=== PATIENT | male | born 1995 | race Two or more races ===

== ENCOUNTER 2022-09-06 22:38 | Inpatient (IN) | payer BC, OTHER ==
[2022-09-07 01:00] VITALS: BMI 26.3
[2022-09-07] MEDS ORDERED: NICOTINE 7 MG/24 HOURS TOPICAL PATCH TD PRN (09:07)
[2022-09-07] MEDS ORDERED: BENZOCAINE/MENTHOL (CHLORASEPTIC ) LOZENGE MM PRN (09:07)
[2022-09-07] MEDS ORDERED: BENZONATATE 200 MG CAPSULE PO PRN (09:07)
[2022-09-07] MEDS ORDERED: MAGNESIUM HYDROX 2400MG/30ML ORAL SUSPENSION 30 ML CUP PO PRN (09:07)
[2022-09-07] MEDS ORDERED: ACETAMINOPHEN 325 MG TABLET (FP) PO PRN (09:07)
[2022-09-07] MEDS ORDERED: ONDANSETRON *ODT* 4 MG TABLET SL PRN (09:07)
[2022-09-07] MEDS ORDERED: LOPERAMIDE HCL 2 MG CAPSULE PO PRN (09:07)
[2022-09-07] MEDS ORDERED: METHOCARBAMOL 500 MG TABLET PO PRN (09:07)
[2022-09-07] MEDS ORDERED: BISMUTH SUBSALICYLATE 262 MG/15 ML BTL PO PRN (09:07)
[2022-09-07] MEDS ORDERED: IBUPROFEN 600 MG TABLET (FP) PO PRN (09:07)
[2022-09-07] MEDS ORDERED: NICOTINE 10 MG CARTRIDGE (INHALER) IH PRN (09:07)
[2022-09-07] MEDS ORDERED: POLYETHYLENE GLYCOL (HEALTHYLAX) 3350 17 GM PACKET PO PRN (09:07)
[2022-09-07] MEDS ORDERED: hydrOXYzine PAMOATE 25 MG CAPSULE (FP) PO PRN (09:07)
[2022-09-07] MEDS ORDERED: guaiFENesin 600 MG TABLET.ER (FP) PO PRN (09:07)
[2022-09-07] MEDS ORDERED: IBUPROFEN 400 MG TABLET (FP) PO PRN (09:07)
[2022-09-07] MEDS ORDERED: MAG HYDROX/AL HYDROX/SIMETH 30 ML UNIT-DOSE CUP PO PRN (09:07)
[2022-09-07] MEDS ORDERED: NICOTINE POLACRILEX 2 MG GUM BUC PRN (09:07)
[2022-09-07] MEDS ORDERED: DICYCLOMINE HCL 10 MG CAPSULE PO PRN (09:07)
[2022-09-07] MEDS: PRENATAL VITAMINS W/ FOLIC ACID TABLET (FP) PO SCH (10:00)
[2022-09-07 13:29] LABS: HEMOGLOBIN 12.7 GM/dL (11.7-16.9); MCHC 33.4 g/dl (32.0-35.9); MEAN CELL VOLUME 86.7 fl (80-96); MEAN PLT VOLUME 9.7 fl (7.5-11.1); PLATELET COUNT 214 10^3/uL (134-434); RBC 4.38 M/mm3 (4.00-5.60); RDW 14.2 % (11.9-15.9); WHITE BLOOD COUNT 3.6 K/mm3 (4.0-10.0)
[2022-09-07 13:35] LABS: ALBUMIN 3.4 g/dl (3.4-5.0); BLOOD UREA NITROGEN 16.1 mg/dL (7-18); CALCIUM 8.7 mg/dL (8.5-10.1)
[2022-09-07 13:38] LABS: CREATININE 0.8 mg/dL (0.55-1.3)
[2022-09-07 13:40] LABS: BILIRUBIN,TOTAL 1.5 mg/dL (0.2-1); TOT PROT 6.8 g/dl (6.4-8.2)
[2022-09-07] MEDS: MELATONIN 5 MG TABLETS PO SCH (22:11)
[2022-09-07] MEDS: THIAMINE HCL 100 MG TABLET (FP) PO SCH (22:12)
[2022-09-08] MEDS: PRENATAL VITAMINS W/ FOLIC ACID TABLET (FP) PO SCH (10:26)
[2022-09-08] MEDS: NEOMYCIN/POLYMYXIN/BACITRACIN (TRIPLE ANTIBIOTIC) 28 GM OINTMENT TP SCH (22:16)
[2022-09-08] MEDS: MELATONIN 5 MG TABLETS PO SCH (22:16)
[2022-09-08] MEDS: THIAMINE HCL 100 MG TABLET (FP) PO SCH (22:16)
[2022-09-09] MEDS: NEOMYCIN/POLYMYXIN/BACITRACIN (TRIPLE ANTIBIOTIC) 28 GM OINTMENT TP SCH ×2 (10:43→22:07)
[2022-09-09] MEDS: PRENATAL VITAMINS W/ FOLIC ACID TABLET (FP) PO SCH (10:44)
[2022-09-09] MEDS ORDERED: diazePAM 5 MG TABLET PO PRN (10:51)
[2022-09-09] MEDS: diazePAM 5 MG TABLET PO SCH ×3 (11:55→22:07)
[2022-09-09] MEDS: MELATONIN 5 MG TABLETS PO SCH (22:08)
[2022-09-09] MEDS: THIAMINE HCL 100 MG TABLET (FP) PO SCH (22:08)
[2022-09-10] MEDS: diazePAM 5 MG TABLET PO SCH ×4 (05:44→22:01)
[2022-09-10] MEDS: PRENATAL VITAMINS W/ FOLIC ACID TABLET (FP) PO SCH (10:22)
[2022-09-10] MEDS: NEOMYCIN/POLYMYXIN/BACITRACIN (TRIPLE ANTIBIOTIC) 28 GM OINTMENT TP SCH ×2 (10:22→22:02)
[2022-09-10] MEDS ORDERED: PENICILLIN G BENZATHINE 2,400,000 UNIT/4 ML PFS IM ONE (11:15)
[2022-09-10] MEDS: MELATONIN 5 MG TABLETS PO SCH (22:02)
[2022-09-10] MEDS: THIAMINE HCL 100 MG TABLET (FP) PO SCH (22:02)
[2022-09-11] MEDS ORDERED: diazePAM 5 MG TABLET PO SCH (06:00)
[2022-09-11 06:29] VITALS: RESP 16
[2022-09-11 09:21] VITALS: BP 119/67; PULSE 87; TEMP 97.1
[2022-09-11] MEDS: NEOMYCIN/POLYMYXIN/BACITRACIN (TRIPLE ANTIBIOTIC) 28 GM OINTMENT TP SCH (10:10)
[2022-09-11] MEDS: PRENATAL VITAMINS W/ FOLIC ACID TABLET (FP) PO SCH (10:10)
[2022-09-12] MEDS ORDERED: diazePAM 5 MG TABLET PO SCH (06:00)
[2022-09-13] MEDS ORDERED: diazePAM 5 MG TABLET PO ONE (06:00)
== END 2022-09-11 09:45 | disposition left against medical advice (07) | DRG 770 ==
LOC: YASAS 22:38 → Y3N 09-07 11:38
PROVIDERS: ADMIT Allergy & Immunology; ATTEND Surgery
PROC: HZ2ZZZZ Detoxification Services for Substance Abuse Treatment (ICD-10-PCS; principal; 2022-09-07)
DX: F13.230 Sedative, hypnotic or anxiolytic dependence with withdrawal, uncomplicated (principal); F17.210 Nicotine dependence, cigarettes, uncomplicated; F41.9 Anxiety disorder, unspecified; Z21 Asymptomatic human immunodeficiency virus [HIV] infection status; R76.8 Other specified abnormal immunological findings in serum; Z86.19 Personal history of other infectious and parasitic diseases
CPT/HCPCS: 36415; 80053; 85027; 86593; 86780; 87811; 93005; 93010; C9803-CS; U0003; U0005

== ENCOUNTER 2022-12-15 19:13 | Inpatient (IN) | payer OTHER ==
[2022-12-15 22:33] VITALS: BMI 21.6
[2022-12-15] MEDS ORDERED: NALOXONE HCL 0.4 MG/ML VIAL IM PRN (23:25)
[2022-12-15] MEDS ORDERED: ACETAMINOPHEN 325 MG TABLET (FP) PO PRN (23:25)
[2022-12-15] MEDS ORDERED: MAG HYDROX/AL HYDROX/SIMETH 30 ML UNIT-DOSE CUP PO PRN (23:25)
[2022-12-15] MEDS ORDERED: COLLOIDAL OATMEAL 1 BAR EACH TP PRN (23:25)
[2022-12-15] MEDS ORDERED: NALOXONE HCL (KLOXXADO) 8 MG SPRAY NS PRN (23:25)
[2022-12-15] MEDS ORDERED: guaiFENesin 600 MG TABLET.ER (FP) PO PRN (23:25)
[2022-12-15] MEDS ORDERED: NICOTINE POLACRILEX 2 MG GUM BUC PRN (23:25)
[2022-12-15] MEDS ORDERED: IBUPROFEN 400 MG TABLET (FP) PO PRN (23:25)
[2022-12-15] MEDS ORDERED: BENZONATATE 200 MG CAPSULE PO PRN (23:25)
[2022-12-15] MEDS ORDERED: MAGNESIUM HYDROX 2400MG/30ML ORAL SUSPENSION 30 ML CUP PO PRN (23:25)
[2022-12-15] MEDS ORDERED: AMMONIUM LACTATE 12% LOTION 225 GM BOTTLE TP PRN (23:25)
[2022-12-15] MEDS ORDERED: BENZOCAINE/MENTHOL (CHLORASEPTIC ) LOZENGE MM PRN (23:25)
[2022-12-15] MEDS ORDERED: LOPERAMIDE HCL 2 MG CAPSULE PO PRN (23:25)
[2022-12-15] MEDS ORDERED: POLYETHYLENE GLYCOL (HEALTHYLAX) 3350 17 GM PACKET PO PRN (23:25)
[2022-12-15] MEDS ORDERED: IBUPROFEN 600 MG TABLET (FP) PO PRN (23:25)
[2022-12-16] MEDS: MELATONIN 5 MG TABLETS PO SCH ×2 (06:26→21:26)
[2022-12-16] MEDS ORDERED: NICOTINE 14 MG/24 HOURS TOPICAL PATCH TD SCH (10:00)
[2022-12-16] MEDS ORDERED: PRENATAL VITAMINS W/ FOLIC ACID TABLET (FP) PO SCH (10:00)
[2022-12-16 11:38] LABS: HEMATOCRIT 36.8 % (35.4-49); HEMOGLOBIN 12.3 GM/dL (11.7-16.9); MCH 28.9 pg (25.7-33.7); MCHC 33.4 g/dl (32.0-35.9); MEAN CELL VOLUME 86.4 fl (80-96); MEAN PLT VOLUME 8.9 fl (7.5-11.1); PLATELET COUNT 242 10^3/uL (134-434); RBC 4.26 M/mm3 (4.00-5.60); RDW 14.3 % (11.9-15.9); WHITE BLOOD COUNT 3.4 K/mm3 (4.0-10.0)
[2022-12-16 12:08] LABS: POTASSIUM 3.9 mmol/L (3.5-5.1)
[2022-12-16 12:15] LABS: ALBUMIN 3.3 g/dl (3.4-5.0); BLOOD UREA NITROGEN 18.5 mg/dL (7-18); CALCIUM 8.4 mg/dL (8.5-10.1)
[2022-12-16 12:18] LABS: CREATININE 0.7 mg/dL (0.55-1.3)
[2022-12-16 12:20] LABS: BILIRUBIN,TOTAL 0.6 mg/dL (0.2-1); TOT PROT 6.5 g/dl (6.4-8.2)
[2022-12-16 12:54] LABS: SYPHILIS W/ RPR CONF REACTIVE (NONREACTIVE)
[2022-12-16] MEDS ORDERED: NICOTINE 14 MG/24 HOURS TOPICAL PATCH TD PRN (14:08)
[2022-12-16] MEDS ORDERED: PRENATAL VITAMINS W/ FOLIC ACID TABLET (FP) PO PRN (15:18)
[2022-12-16] MEDS: THIAMINE HCL 100 MG TABLET (FP) PO SCH (21:26)
[2022-12-17] MEDS: THIAMINE HCL 100 MG TABLET (FP) PO SCH (22:02)
[2022-12-17] MEDS: MELATONIN 5 MG TABLETS PO SCH (22:02)
[2022-12-18 10:51] LABS: URINE APPEARANCE CLEAR; URINE BILIRUBIN NEGATIVE (NEGATIVE); URINE COLOR YELLOW; URINE GLUCOSE (UA) NEGATIVE (NEGATIVE); URINE KETONE NEGATIVE (NEGATIVE); URINE LEUK ESTERASE NEGATIVE (NEGATIVE); URINE NITRITE NEGATIVE (NEGATIVE); URINE PROTEIN NEGATIVE (NEGATIVE); URINE UROBILINOGEN 0.2 mg/dL (0.2-1.0)
[2022-12-18] MEDS: MELATONIN 5 MG TABLETS PO SCH (23:02)
[2022-12-18] MEDS: THIAMINE HCL 100 MG TABLET (FP) PO SCH (23:02)
[2022-12-19] MEDS: MELATONIN 5 MG TABLETS PO SCH (21:42)
[2022-12-19] MEDS: THIAMINE HCL 100 MG TABLET (FP) PO SCH (21:42)
[2022-12-20] MEDS: MELATONIN 5 MG TABLETS PO SCH (21:30)
[2022-12-20] MEDS: THIAMINE HCL 100 MG TABLET (FP) PO SCH (21:30)
[2022-12-21] MEDS: THIAMINE HCL 100 MG TABLET (FP) PO SCH (21:34)
[2022-12-21] MEDS: MELATONIN 5 MG TABLETS PO SCH (21:34)
[2022-12-22] MEDS: MELATONIN 5 MG TABLETS PO SCH (21:17)
[2022-12-22] MEDS: THIAMINE HCL 100 MG TABLET (FP) PO SCH (21:17)
[2022-12-22] MEDS: hydrOXYzine PAMOATE 25 MG CAPSULE (FP) PO PRN (21:18)
[2022-12-23] MEDS: THIAMINE HCL 100 MG TABLET (FP) PO SCH (21:06)
[2022-12-23] MEDS: MELATONIN 5 MG TABLETS PO SCH (21:06)
[2022-12-23] MEDS: hydrOXYzine PAMOATE 25 MG CAPSULE (FP) PO PRN (21:07)
[2022-12-24] MEDS: THIAMINE HCL 100 MG TABLET (FP) PO SCH (21:15)
[2022-12-24] MEDS: MELATONIN 5 MG TABLETS PO SCH (21:15)
[2022-12-24] MEDS: hydrOXYzine PAMOATE 25 MG CAPSULE (FP) PO PRN (21:16)
[2022-12-25] MEDS: MELATONIN 5 MG TABLETS PO SCH (21:14)
[2022-12-25] MEDS: THIAMINE HCL 100 MG TABLET (FP) PO SCH (21:14)
[2022-12-25] MEDS: hydrOXYzine PAMOATE 25 MG CAPSULE (FP) PO PRN (21:14)
[2022-12-26] MEDS: hydrOXYzine PAMOATE 25 MG CAPSULE (FP) PO PRN (21:29)
[2022-12-26] MEDS: THIAMINE HCL 100 MG TABLET (FP) PO SCH (21:29)
[2022-12-26] MEDS: MELATONIN 5 MG TABLETS PO SCH (21:29)
[2022-12-27] MEDS: MELATONIN 5 MG TABLETS PO SCH (21:12)
[2022-12-27] MEDS: THIAMINE HCL 100 MG TABLET (FP) PO SCH (21:12)
[2022-12-27] MEDS: hydrOXYzine PAMOATE 25 MG CAPSULE (FP) PO PRN (21:13)
[2022-12-28] MEDS: hydrOXYzine PAMOATE 25 MG CAPSULE (FP) PO PRN (22:52)
[2022-12-28] MEDS: THIAMINE HCL 100 MG TABLET (FP) PO SCH (22:53)
[2022-12-28] MEDS: MELATONIN 5 MG TABLETS PO SCH (22:53)
[2022-12-29 06:52] VITALS: BP 125/81; PULSE 82; RESP 20; TEMP 97.7
== END 2022-12-29 09:08 | disposition home or self-care (01) | DRG 772 ==
LOC: YASAS 19:13 → Y3E 23:39
PROVIDERS: ADMIT Allergy & Immunology; ATTEND Psychiatry & Neurology Pain Medicine
PROC: HZ42ZZZ Group Counseling for Substance Abuse Treatment, Cognitive-Behavioral (ICD-10-PCS; principal; 2022-12-15)
DX: F15.20 Other stimulant dependence, uncomplicated (principal); F12.20 Cannabis dependence, uncomplicated; F17.210 Nicotine dependence, cigarettes, uncomplicated; F19.94 Other psychoactive substance use, unspecified with psychoactive substance-induced mood disorder; Z21 Asymptomatic human immunodeficiency virus [HIV] infection status; Z62.810 Personal history of physical and sexual abuse in childhood; Z86.59 Personal history of other mental and behavioral disorders; Z91.148 Patient's other noncompliance with medication regimen for other reason; Z86.19 Personal history of other infectious and parasitic diseases; Z56.0 Unemployment, unspecified; Z59.00 Homelessness unspecified
CPT/HCPCS: 36415; 80053; 81003; 85027; 86593; 86780; 86803; 87635